=== PATIENT | male | born 1970 | race Caucasian/White ===

== ENCOUNTER 2017-11-24 22:58 | Observation (INO) | payer OTHER ==
[~2017-11-24] VITALS: Ht 175.3 cm; Wt 78.6 kg
[2017-11-24] MEDS ORDERED: ondansetron/PF 4mg/2ml inj IV ONE (23:20)
[2017-11-24] MEDS ORDERED: morphine 4 MG/ML inj SYRINge IV ONE (23:20)
[2017-11-24 23:21] LABS: BASOPHILS # (AUTO) 0.1 X10'3 (0-0.2); BASOPHILS % (AUTO) 0.9 % (0-1); EOSINOPHILS # (AUTO) 0.3 X10'3 (0-0.9); EOSINOPHILS % (AUTO) 3.6 % (0-6); HEMATOCRIT 38.1 % (42.0-52.0); LYMPHOCYTES # (AUTO) 3.6 X10'3 (1.1-4.8); LYMPHOCYTES % (AUTO) 39.2 % (21-51); MEAN CORPUSCULAR HEMOGLOBIN 29.9 PG (27.0-31.0); MEAN CORPUSCULAR HGB CONC 34.2 % (33.0-36.5); MEAN CORPUSCULAR VOLUME 87.4 FL (78-98); MEAN PLATELET VOLUME 8.8 FL (7.4-10.4); MONOCYTES # (AUTO) 0.6 X10'3 (0-0.9); MONOCYTES % (AUTO) 6.8 % (2-12); NEUTROPHILS # (AUTO) 4.5 X10'3 (1.8-7.7); NEUTROPHILS % (AUTO) 49.5 % (42-75); PLATELET COUNT 288 X10'3 (140-440); RED BLOOD COUNT 4.36 X10'6 (4.70-6.10); RED CELL DISTRIBUTION WIDTH 14.4 % (11.5-14.5); WHITE BLOOD COUNT 9.1 X10'3 (4.5-11.0)
[2017-11-24 23:40] LABS: ALANINE AMINOTRANSFERASE 41 U/L (12-78); ALBUMIN/GLOBULIN RATIO 1.4 (1.1-1.5); ALKALINE PHOSPHATASE 57 IU/L (46-116); ANION GAP 9 (8-16); ASPARTATE AMINO TRANSFERASE 24 U/L (10-37); BILIRUBIN,TOTAL 0.4 MG/DL (0.1-1.0); BLOOD UREA NITROGEN 11 MG/DL (7-18); BUN/CREATININE RATIO 8.5 (5.4-32.0); CALCIUM 9.1 MG/DL (8.5-10.1); CHLORIDE 103 MMOL/L (99-107); CREATININE 1.29 MG/DL (0.60-1.10); GLUCOSE 99 MG/DL (70-104); POTASSIUM 3.7 MMOL/L (3.5-5.1); SODIUM 135 MMOL/L (135-145); TOTAL CARBON DIOXIDE 22.6 MMOL/L (24-32); TOTAL PROTEIN 6.9 G/DL (6.4-8.2); eGFR 59 ML/MIN
[2017-11-24 23:49] LABS: D-DIMER 0.28 MG/L FEU (0-0.50); PARTIAL THROMBOPLASTIN TIME 29 SECONDS (22-32); PROTHROMBIN TIME 10.7 SECONDS (9.0-12.0)
[2017-11-25] VITALS (12 sets, daily range): BP systolic 109–138; BP diastolic 69–90
[2017-11-25] MEDS ORDERED: nitroGLYCERIN 1gm ointment UD TP ONE
[2017-11-25] MEDS ORDERED: aspirin 81mg tab.chew PO ONE
[2017-11-25] MEDS ORDERED: ALBU8.5H8 IH (00:30)
[2017-11-25] MEDS ORDERED: SILD50TA PO (00:30)
[2017-11-25] MEDS ORDERED: SIMV10TA6 PO (00:30)
[2017-11-25] MEDS ORDERED: MONT10TA21 PO (00:30)
[2017-11-25] MEDS ORDERED: LISI10TA4 PO (00:30)
[2017-11-25] MEDS ORDERED: LEVO137T24 PO (00:30)
[2017-11-25] MEDS ORDERED: FLUT1DIS4 INH (00:30)
[2017-11-25] MEDS ORDERED: GABA600T PO (00:30)
[2017-11-25] MEDS ORDERED: HYDROcodone/acetaminophen 10/325mg tab PO PRN (01:40)
[2017-11-25] MEDS ORDERED: albuterol 2.5 MG/3 ML nebule NEB PRN (01:40)
[2017-11-25] MEDS ORDERED: mag hydrox/Alum hydrox/simeth 30ml oral suspension PO PRN (01:40)
[2017-11-25] MEDS ORDERED: HYDROcodone/acetaminophen 5mg/325mg tablet PO PRN (01:40)
[2017-11-25] MEDS ORDERED: magnesium hydroxide 30ml (MOM) UD suspension PO PRN (01:40)
[2017-11-25] MEDS ORDERED: acetaminophen 325mg tablet PO PRN ×2 (01:40)
[2017-11-25] MEDS ORDERED: ondansetron/PF 4mg/2ml inj IV PRN (01:40)
[2017-11-25] MEDS: normal saline 1000ml 1,000 ML IV SCH ×2 (02:32→11:36)
[2017-11-25] MEDS ORDERED: levoTHYROXINE 112mcg tablet PO SCH (07:00)
[2017-11-25] MEDS ORDERED: levoTHYROXINE 25mcg tablet PO SCH (07:00)
[2017-11-25] MEDS ORDERED: lisinopril 10 MG tablet PO SCH (08:00)
[2017-11-25] MEDS ORDERED: montelukast 10mg tablet PO SCH (08:00)
[2017-11-25] MEDS ORDERED: aspirin 81mg tablet.DR PO SCH (08:00)
[2017-11-25] MEDS ORDERED: gabapentin 300mg capsule PO SCH (08:00)
[2017-11-25] MEDS ORDERED: BUDESONIDE 0.25 MG/2 ML AMPUL.NEB IH SCH (09:00)
[2017-11-25] MEDS ORDERED: albuterol 2.5 MG/3 ML nebule NEB SCH (09:00)
[2017-11-25] MEDS ORDERED: regadenoson 0.4mg/5ml syringe IV ONE ×2 (09:40→12:15)
[2017-11-25] MEDS ORDERED: CAFFEINE CITRATE 60 MG/3 ML injection vial IV PRN (09:40)
[2017-11-25] MEDS ORDERED: metoprolol tartrate 1mg/ml inj IV PRN (09:40)
[2017-11-25] MEDS ORDERED: nitroGLYCERIN 0.4mg SUBLingual tab SL PRN (09:40)
[2017-11-25] MEDS ORDERED: CAFFEINE CITRATE 60 MG/3 ML injection vial IV ONE (12:15)
[2017-11-25] MEDS ORDERED: atorvastatin 10mg tablet PO SCH (21:00)
[2017-11-25] MEDS ORDERED: temazepam 15mg capsule PO PRN (21:00)
== END 2017-11-25 16:06 | disposition left against medical advice (07) ==
LOC: ER 22:59 → ED HOLD 11-25 01:36 → PCU 3S 11-25 02:36
PROVIDERS: ADMIT Hospitalist; ATTEND Family Medicine
DX: R07.89 Other chest pain (principal); R79.89 Other specified abnormal findings of blood chemistry; E03.9 Hypothyroidism, unspecified; I10 Essential (primary) hypertension; E78.00 Pure hypercholesterolemia, unspecified; J45.909 Unspecified asthma, uncomplicated; G43.909 Migraine, unspecified, not intractable, without status migrainosus; Z87.891 Personal history of nicotine dependence
CPT/HCPCS: 36415; 71045; 78452; 80053; 83880; 84443; 84484; 85025; 85379; 85610; 85730; 87070; 93005; 93017; 96361; 96374; 96375; 99285; A9500; G0378; J2270; J2405; J7030